=== PATIENT | female | born 1995 | race American Indian/Alaskan Native ===

== ENCOUNTER 2018-11-13 09:42 | Emergency (ER) | payer MEDICAID ==
[2018-11-13 10:16] VITALS: BP 120/77
[2018-11-13] MEDS ORDERED: TORADOL IM ONE (10:21)
--- NOTE | 2018-11-13 10:22 | Emergency Department Report ---
ED Lower Extremity HPI - General Chief Complaint: Extremity Injury, Lower Stated Complaint: LEG PAIN Time Seen by Provider: 11/13/18 10:13 Source: patient, EMS (ems notes not available at time of chart dictation), RN notes reviewed Mode of arrival: Stretcher Limitations: Physical Limitation - History of Present Illness Initial Comments: This is a 23-year-old female who is not known to this provider, who reports that she is not . The patient denies chronic medical conditions The patient reports that she twisted her left knee last week, and was seen at another [facility], [facility], and presumptively diagnosed with soft tissue or meniscus injury. She reports negative x-ray. Patient reports that she was not given a knee brace, she was not given crutches, and she was not made on nonweightbearing. She was instructed to follow-up with an orthopedic surgeon. She is still trying to get an appointment with an orthopedic surgeon. She presents with recurrent pain to the lateral and medial aspect of the left knee, after twisting today. The pain is sharp, intermittent, worsens with palpation, decreases with rest, and does not radiate anywhere. She denies other complaints. She denies weakness, numbness. She denies other pain. She reports that she was instructed that she would need an MRI, but as of yet, has not obtained an MRI. Complaint: knee injury -: Sudden, hour(s), days(s) Injury: Leg: Left Type of Injury: other (twisting) Place: work Severity: moderate Improves With: rest Worsens With: movement, palpation Context: other (per history of present illness) Associated Symptoms: unable to bear weight - Related Data Previous Rx's Medication Instructions Recorded Last Taken Type Acetaminophen [Tylenol] 325 mg PO Q4HR PRN #30 capsule 11/13/18 Unknown Rx Ibuprofen [Motrin] 400 mg PO Q8H PRN #30 tablet 11/13/18 Unknown Rx ED Review of Systems ROS: Stated complaint: LEG PAIN Other details as noted in HPI Constitutional: denies: fever, malaise ENT: denies: dental pain, epistaxis Respiratory: denies: cough Cardiovascular: denies: chest pain Genitourinary: denies: dysuria Musculoskeletal: arthralgia, myalgia Skin: denies: lesions Neurological: denies: headache, weakness, numbness, paresthesias, confusion ED Past Medical Hx - Past Medical History Previous Medical History?: Yes Additional medical history: [id number] - Surgical History Past Surgical History?: Yes Additional Surgical History: cardiac ablation - Social History Smoking Status: Current Every Day Smoker Substance Use Type: Alcohol - Medications Home Medications: Home Medications Medication Instructions Recorded Confirmed Last Taken Type Acetaminophen [Tylenol] 325 mg PO Q4HR PRN #30 capsule 11/13/18 Unknown Rx Ibuprofen [Motrin] 400 mg PO Q8H PRN #30 tablet 11/13/18 Unknown Rx ED Physical Exam - General Limitations: Physical Limitation General appearance: alert, in no apparent distress - Head Head exam: Present: atraumatic, normocephalic - Eye Eye exam: Present: normal appearance, EOMI. Absent: nystagmus - ENT ENT exam: Present: normal exam, normal orophraynx, mucous membranes moist - Neck Neck exam: Present: normal inspection, full ROM. Absent: tenderness, meningismus - Respiratory Respiratory exam: Present: normal lung sounds bilaterally. Absent: respiratory distress - Cardiovascular Cardiovascular Exam: Present: regular rate, normal rhythm, normal heart sounds. Absent: bradycardia, tachycardia, irregular rhythm, systolic murmur, diastolic murmur, rubs, gallop - GI/Abdominal GI/Abdominal exam: Present: soft. Absent: distended, tenderness, guarding, rebound, rigid, pulsatile mass - Extremities Exam Extremities exam: Present: normal inspection, tenderness (there is tenderness on the left knee medial and lateral joint line. There is no redness, pus or streaking. There is no patellar tenderness), other (2+ pulses noted in the bilateral upper, lower extremities. Compartments soft. No long bony tenderness. The pelvis is stable.). Absent: pedal edema, joint swelling, calf tenderness - Back Exam Back exam: Present: normal inspection, full ROM. Absent: tenderness, CVA tenderness (R), paraspinal tenderness, vertebral tenderness - Neurological Exam Neurological exam: Present: alert, oriented X3, other (Extraocular movements intact. Tongue midline. No facial droop. Facial sensation intact to light touch in the V1, V2, V3 distribution bilaterally. 5 and 5 strength in 4 extremities.. Sensation is intact to light touch in 4 extremities.). Absent: motor sensory deficit - Psychiatric Psychiatric exam: Present: normal affect, normal mood - Skin Skin exam: Present: warm, dry, intact, normal color. Absent: rash ED Course Vital Signs 11/13/18 09:50 Temperature 98.1 F Pulse Rate 73 Respiratory 16 Rate Blood Pressure 120/77 O2 Sat by Pulse 99 Oximetry - Reevaluation(s) Reevaluation #1: 11/13/18 10:47 During lower extremity examination, chaperoned by nurse Keira Pablo ED Lower Extremity MDM - Lab Data Vital Signs 11/13/18 09:50 Temperature 98.1 F Pulse Rate 73 Respiratory 16 Rate Blood Pressure 120/77 O2 Sat by Pulse 99 Oximetry - Medical Decision Making Differential diagnosis, including but not limited to: Sprain, strain, soft tissue injury Assessment and plan: 23-year-old female with acute on subacute left knee injury, likely related to soft tissue. Patient reports negative x-ray at another facility, and her exam does not appear to be consistent with fracture, or dislocation, as there is no blunt trauma today. The patient is afebrile, with reassuring vital signs. Explained to the patient that she would be made nonweightbearing, she will be given crutches, and she'll be placed in a knee immobilizer. Explained to patient that she would need to follow up with an outpatient orthopedic physician, for further diagnostic evaluation and management. Explained to patient that MRI would be appropriate, but would not consider this test to be necessary from the perspective of the emergency department, as the patient does not have a condition that is immediately life, or limb threatening. The patient verbalized understanding. She is medically suitable for discharge at this point of time, with instructions to follow up with outpatient orthopedics. Critical care attestation.: If time is entered above; I have spent that time in minutes in the direct care of this critically ill patient, excluding procedure time. ED Disposition Clinical Impression: Left knee pain Qualifiers: Chronicity: unspecified Qualified Code(s): M25.562 - Pain in left knee Disposition: DC-01 TO HOME OR SELFCARE Is pt being admited?: No Does the pt Need Aspirin: No Condition: Stable Instructions: Arthralgia (ED), Knee Sprain (ED) Additional Instructions: The patient should remain nonweightbearing on the left lower extremity, and use the crutches as directed. Follow up with an orthopedic physician within the next 5-7 days. Patient will likely need outpatient MRI to further evaluate left knee soft tissue injury. Take pain medication as needed/directed. Return to the emergency room right away with new, worsened or different symptoms. Referrals: [facility] [Provider Group] - 3-5 Days DOLORES LOERA MD [Referring] - 3-5 Days NOEMY PANDEY MD [Staff Physician] - 3-5 Days Forms: Work/School Release Form(ED)
== END 2018-11-13 11:01 | disposition home or self-care (01) ==
LOC: ED 09:42
DX: M25.562 Pain in left knee (principal); F17.200 Nicotine dependence, unspecified, uncomplicated
CPT/HCPCS: 96372; 99283; J1885